=== PATIENT | male | born 1960 | race Caucasian/White ===

== ENCOUNTER → 2016-04-11 | Outpatient (CLI) | payer OTHER ==
--- NOTE | 2016-04-11 09:19 | REP ---
MRI CERVICAL SPINE WITHOUT CONTRAST: 04/11/2016. Comparison: CT soft tissue neck 09/07/2014, cervical spine x-ray 06/14/2005. Clinical history: Neck pain, left shoulder pain post trauma years ago. Technique: Sagittal T1, T2 and STIR images with axial T1 and T2 sequences. Findings. There is slight loss of the normal cervical lordosis as on the previous CT. The vertebral body heights and marrow signal are preserved throughout. There is loss of disc water signal from C2-3 through C5-6, less at the levels below. I see no intrinsic signal abnormality, syrinx, atrophy or intramedullary lesion in the cord. Ample subarachnoid space at the craniocervical junction with no cerebellar tonsillar ectopia. At C2-3 there is no disc bulge or herniation. Marginal osteophytes and facet arthropathy are mild, but combined to make borderline foramina. At C3-4 there is a broad-based disc bulge with left paracentral disc protrusion extending into the left foramen. This thins ventral subarachnoid space with AP canal diameter only 8.5 mm, mildly stenotic. No cord compression. There is foraminal encroachment on the left greater than right due to combined factors of disc and facet arthropathy on the left greater than right. At C4-5 there is a disc bulge with central protrusion which does not abut the ventral cord surface. The AP canal diameter is just less than 10 mm. The foramina are marginally adequate on the right and left. No nerve root compression. At C5-6 there is a broad-based disc bulge flattening the ventral thecal sac and causing some spinal stenosis. The AP canal diameter is 8.3 mm. Foramina are adequate on the left and mildly stenotic on the right due to combined factors. At C6-7 and C7-T1. There is no disc bulge or herniation and no spinal or foraminal stenosis. The upper thoracic regions were grossly intact. Impression: 1. Cervical spondylosis from C3-4 through C5-6 with foraminal encroachment as described above and spinal stenosis greatest at C3-4. There is also borderline foraminal encroachment at C2-3 without central canal stenosis. 2. No intrinsic cord signal abnormality, syrinx, atrophy or mass. Signed by Tin Tavera MD 04/11/2016 10:46 A
== END ==
LOC: M RAD 07:00
PROVIDERS: ATTEND Physician Assistant
DX: M48.02 Spinal stenosis, cervical region (principal); M47.892 Other spondylosis, cervical region

== ENCOUNTER 2018-11-06 20:12 | Emergency (ER) | payer OTHER ==
[~2018-11-06] VITALS: Ht 177.8 cm; Wt 98.6 kg
[2018-11-06] MEDS ORDERED: OMEP-221 PO (20:16)
[2018-11-06] MEDS ORDERED: ALL10TAB29 PO (20:16)
[2018-11-06] MEDS ORDERED: LOSA50TA88 PO (20:16)
--- NOTE | 2018-11-06 21:18 | REPVR ---
EXAM: US Pelvis Limited, Male EXAM DATE/TIME: 11/06/2018 8:56 PM CLINICAL HISTORY: 57 years old, male; Pelvic pain; Prior surgery; Surgery date: 6+ months; Surgery type: Patient states bilateral inguinal repair at 4 months old; Additional info: Inguinal hernia TECHNIQUE: Imaging protocol: Real-time pelvic ultrasound with image documentation. COMPARISON: No relevant prior studies available. FINDINGS: Fat is noted within a right inguinal hernia at the internal ring. The hernia slightly increases in size with Valsalva maneuver going from 2 cm in diameter to 2.5 cm in diameter with Valsalva. IMPRESSION: Fat-containing right inguinal hernia Electronically signed by: Buffy Herrera On 11/06/2018 21:18:32 PM
[2018-11-06] MEDS ORDERED: NS 1,000 ML IV ONE (21:30)
[2018-11-06 21:58] LABS: BASO % 0.3 % (0.0-1.0); EOS % 0.5 % (0.0-3.0); HEMATOCRIT 40.4 % (42.0-52.0); HEMOGLOBIN 14.3 g/dl (13.5-17.5); LYMPH # 1.6 10^3/uL (1.5-4.5); LYMPH % 21.2 % (24.0-44.0); MEAN CORPUSCULAR HEMOGLOBIN 31.3 pg (27.0-33.0); MEAN CORPUSCULAR HGB CONC 35.4 g/dl (32.0-36.5); MEAN CORPUSCULAR VOLUME 88.4 fl (80.0-96.0); MONO # 0.7 10^3/uL (0.0-0.8); MONO % 9.4 % (0.0-5.0); NEUTROPHILS % 68.3 % (36.0-66.0); PLATELET COUNT, AUTOMATED 123 10^3/uL (150-450); RED BLOOD COUNT 4.57 10^6/uL (4.30-6.10); WHITE BLOOD COUNT 7.4 10^3/uL (4.0-10.0)
[2018-11-06] MEDS ORDERED: ISOVUE-370 76% 100ML VIAL (Q9967) As Ordered ONE (22:20)
[2018-11-06 22:30] LABS: ALBUMIN 4.2 GM/DL (3.2-5.2); BILIRUBIN,DIRECT 0.4 MG/DL (0.0-0.2); BILIRUBIN,TOTAL 1.7 MG/DL (0.2-1.0); TOTAL PROTEIN 6.8 GM/DL (6.4-8.2)
--- NOTE | 2018-11-06 23:44 | REPVR ---
EXAM: CT Abdomen and Pelvis With Contrast EXAM DATE/TIME: 11/06/2018 10:30 PM CLINICAL HISTORY: 57 years old, male; Abdominal pain; Generalized; Additional info: R inguinal hernia, diffuse abd pain TECHNIQUE: Imaging protocol: Computed tomography of the abdomen and pelvis with intravenous contrast. Radiation optimization: All CT scans at this facility use at least one of these dose optimization techniques: automated exposure control; mA and/or kV adjustment per patient size (includes targeted exams where dose is matched to clinical indication); or iterative reconstruction. Contrast material: ISOVUE 370; Contrast volume: 100 ml; Contrast route: IV; COMPARISON: US Testis 11/06/2018 8:53 PM FINDINGS: Lungs: Clear lung bases. Heart: The heart is normal in size and there is no pericardial effusion. Liver: Normal appearing liver. Gallbladder and bile ducts: There may be a small amount of sludge and punctate gallstones in the gallbladder neck. Pancreas: Normal pancreas. Spleen: Mild splenomegaly. Adrenals: Normal adrenal glands. Kidneys and ureters: There is enhancement of both kidneys. There is no evidence of hydronephrosis. Stomach and bowel: There is no evidence of bowel obstruction. There are numerous diverticula of the sigmoid colon but no definite evidence of diverticulitis. There is no evidence of lymphadenopathy. Appendix: There is no evidence of inflammation in the region of the cecum or appendix. Intraperitoneal space: There is no evidence of pneumoperitoneum. Vasculature: There is opacification of the SMA. There is opacification of the aorta which appears intact. There is a prominent right inguinal hernia with protrusion of mesenteric fat only. Bladder: There is a small amount of urine in urinary bladder. Reproductive: Normal size prostate. Bones/joints: There is no evidence of bony abnormality. IMPRESSION: 1. There is a prominent right inguinal hernia with protrusion of only mesenteric fat only and no evidence of bowel obstruction. 2. There are several diverticula that enhance at the sigmoid colon but no definite evidence of surrounding inflammation. 3. Possible small amount of sludge and punctate stones in the neck of the gallbladder. 4. Mild splenomegaly. Electronically signed by: Louis Schafer On 11/06/2018 23:44:12 PM
[2018-11-07] MEDS ORDERED: NORCO 5/325MG TABLET (BULK FOR ED) PO ONE (00:30)
[2018-11-07] MEDS ORDERED: NORC1TAB7 PO (00:33)
[2018-11-07 00:55] VITALS: BP 128/80
--- NOTE | 2018-11-09 07:42 | ED PDOC ---
Post-Departure Follow-Up dr good faxed formal report of ct abd/p for fu Deon Wilson MD Nov 09, 2018 07:42
== END 2018-11-07 00:56 | disposition home or self-care (01) ==
LOC: M ED 20:12
DX: K40.90 Unilateral inguinal hernia, without obstruction or gangrene, not specified as recurrent (principal); K80.20 Calculus of gallbladder without cholecystitis without obstruction; K83.8 Other specified diseases of biliary tract; I10 Essential (primary) hypertension; Z87.891 Personal history of nicotine dependence; Z79.899 Other long term (current) drug therapy
CPT/HCPCS: 74177; 76857; 80047; 80076; 81001; 83605; 83690; 85025; 99284; Q9967

== ENCOUNTER 2019-08-18 02:38 | Emergency (ER) | payer OTHER ==
[~2019-08-18] VITALS: Ht 177.8 cm; Wt 96.9 kg
[~2019-08-18 02:38] MED LIST: ALL10TAB29 PO; LOSA50TA88 PO; NORC1TAB7 PO; OMEP-221 PO
[2019-08-18] MEDS ORDERED: FLUTISP NARES (02:43)
[2019-08-18] MEDS ORDERED: NOXI1TAB PO (02:43)
[2019-08-18] MEDS ORDERED: ISOVUE-370 76% 100ML VIAL As Ordered ONE (03:10)
[2019-08-18] MEDS ORDERED: NS 1,000 ML IV ONE (03:15)
[2019-08-18] MEDS ORDERED: ONDANSETRON 4MG/2ML VIAL IV ONE (03:15)
[2019-08-18] MEDS ORDERED: MORPHINE 2 MG/ML 1ML VIAL (J2270) IV PRN (03:15)
[2019-08-18 03:45] LABS: BASO % 0.2 % (0.0-1.0); EOS # 0.1 10^3/uL (0.0-0.5); HEMATOCRIT 37.9 % (42.0-52.0); LYMPH # 1.2 10^3/uL (1.5-5.0); LYMPH % 25.7 % (24.0-44.0); MEAN CORPUSCULAR HEMOGLOBIN 30.4 pg (27.0-33.0); MEAN CORPUSCULAR HGB CONC 34.3 g/dl (32.0-36.5); MEAN CORPUSCULAR VOLUME 88.8 fl (80.0-96.0); MONO # 0.5 10^3/uL (0.0-0.8); NEUTROPHILS % 61.9 % (36.0-66.0); PLATELET COUNT, AUTOMATED 112 10^3/uL (150-450); RED BLOOD COUNT 4.27 10^6/uL (4.30-6.10); WHITE BLOOD COUNT 4.8 10^3/uL (4.0-10.0)
[2019-08-18 04:08] LABS: ALBUMIN 3.5 GM/DL (3.2-5.2); BILIRUBIN,DIRECT 0.3 MG/DL (0.0-0.2); BILIRUBIN,TOTAL 1.7 MG/DL (0.2-1.0); TOTAL PROTEIN 6.3 GM/DL (6.4-8.2)
--- NOTE | 2019-08-18 04:11 | REPVR ---
PROCEDURE INFORMATION: Exam: CT Abdomen And Pelvis With Contrast Exam date and time: 08/18/2019 3:03 AM Age: 58 years old Clinical indication: Abdominal pain; Localized; Right lower quadrant (rlq); Additional info: Rlq/flank pain TECHNIQUE: Imaging protocol: Computed tomography of the abdomen and pelvis with intravenous contrast. Radiation optimization: All CT scans at this facility use at least one of these dose optimization techniques: automated exposure control; mA and/or kV adjustment per patient size (includes targeted exams where dose is matched to clinical indication); or iterative reconstruction. Contrast material: ISO; Contrast volume: 100 ml; Contrast route: AC; COMPARISON: CT ABD/PEL W/IV CONTRAST ONLY 11/06/2018 10:23 PM FINDINGS: Lungs: Mild bibasilar dependent change. Liver: Normal. No mass. Gallbladder and bile ducts: Normal. No calcified stones. No ductal dilation. Pancreas: Normal. No ductal dilation. Spleen: Normal. No splenomegaly. Adrenals: Normal. No mass. Kidneys and ureters: Small indeterminate hypodensity at the anterior left kidney is stable from prior examination. No hydronephrosis or hydroureter. Stomach and bowel: Diverticulosis without diverticulitis. Appendix: No evidence of appendicitis. Intraperitoneal space: Unremarkable. No free air. No significant fluid collection. Vasculature: Mild vascular calcification. Lymph nodes: Unremarkable. No enlarged lymph nodes. Bladder: Unremarkable as visualized. Reproductive: Unremarkable as visualized. Bones/joints: Unremarkable. No acute fracture. Soft tissues: Small fat containing umbilical hernia. IMPRESSION: No acute abnormality. Electronically signed by: Yoseph Izaguirre On 08/18/2019 04:10:53 AM
[2019-08-18] MEDS ORDERED: MIRA3350 PO (05:07)
[2019-08-18] MEDS ORDERED: NORC1TAB7 PO (05:07)
[2019-08-18] MEDS ORDERED: PERCOCET 5MG/325MG TAB PO ONE (05:15)
[2019-08-18] MEDS ORDERED: NORCO 5/325MG TABLET (BULK FOR ED) PO ONE (05:15)
[2019-08-18 06:03] VITALS: BP 121/69
== END 2019-08-18 06:15 | disposition home or self-care (01) ==
LOC: M ED 02:38
DX: K59.00 Constipation, unspecified (principal); K57.90 Diverticulosis of intestine, part unspecified, without perforation or abscess without bleeding; K42.9 Umbilical hernia without obstruction or gangrene; I10 Essential (primary) hypertension; Z79.899 Other long term (current) drug therapy; Z87.891 Personal history of nicotine dependence; Z88.2 Allergy status to sulfonamides; Z88.8 Allergy status to other drugs, medicaments and biological substances
CPT/HCPCS: 36415; 74177; 80047; 80076; 81001; 83605; 83690; 85025; 96361; 96374; 99284; J2270; J2405; Q9967